=== PATIENT | male | born 2005 | race African-American/Black ===

== ENCOUNTER 2023-10-02 16:49 | Emergency (ER) | payer OTHER ==
[~2023-10-02] VITALS: Ht 188 cm; Wt 97.7 kg
[2023-10-02 17:29] VITALS: BP 125/55; PULSE 63; RESP 16; TEMP 99.4; O2SAT 97
[2023-10-02] MEDS: LIDOCAINE 1% HCL (LOCAL ANESTH.) INJ 20ML MDV IJ ONE (17:58)
== END 2023-10-02 18:04 | disposition home or self-care (01) ==
LOC: ER 16:54
DX: S61.012A Laceration without foreign body of left thumb without damage to nail, initial encounter (principal); W26.0XXA Contact with knife, initial encounter; Y93.89 Activity, other specified; Y92.89 Other specified places as the place of occurrence of the external cause; Y99.0 Civilian activity done for income or pay
CPT/HCPCS: 12001; 99282; J2001